=== PATIENT | male | born 1960 | race Caucasian/White ===

== ENCOUNTER 2017-06-12 07:02 | Day surgery (SDC) | payer BC, OTHER ==
[2017-06-11 10:50] VITALS: BMI 41.8
[~2017-06-12 07:02] MED LIST: LACTATED RINGERS 1,000 ML IV SCH
[2017-06-12 08:51] VITALS: TEMP 98.8
[2017-06-12] MEDS ORDERED: LACTATED RINGERS 1,000 ML IV ONE (08:52)
[2017-06-12 09:13] LABS: Glucose,Whole Blood 114 mg/dL (75-99)
[2017-06-12] MEDS ORDERED: MIDAZOLAM 2 MG/2 ML VIAL ONE (09:28)
[2017-06-12] MEDS ORDERED: PROPOFOL 10 MG/ML 20 ML VIAL IV ONE (09:28)
[2017-06-12] MEDS ORDERED: fentaNYL (PF) 50 MCG/ML 2 ML AMP ONE (09:28)
--- NOTE | 2017-06-12 09:33 | P.GSHP ---
History of Present Illness H&P Date: 06/12/17 Chief Complaint: Colon cancer screening Patient here today for colonoscopy. He has not had one previously. No bowel related complaints. No family history of colon cancer. Past Medical History Past Medical History: Diabetes Mellitus, Hyperlipidemia, Hypertension, Osteoarthritis (OA) Additional Past Medical History / Comment(s): "borderline diabetic-dr supposed to call in prescription", tendon injury to rt arm-limits movement of arm History of Any Multi-Drug Resistant Organisms: None Reported Past Surgical History: Joint Replacement Additional Past Surgical History / Comment(s): ray hip replacements, metal removed from rt eye, Past Anesthesia/Blood Transfusion Reactions: No Reported Reaction Smoking Status: Current every day smoker - Past Family History Father Family Medical History: Cancer Medications and Allergies Home Medications Medication Instructions Recorded Confirmed Type Aspirin [Adult Low Dose Aspirin EC] 81 mg PO DAILY 06/11/17 06/12/17 History Bisoprolol-Hctz 10-6.25 mg [Ziac 1 each PO DAILY 06/11/17 06/12/17 History 10-6.25] Escitalopram Oxalate [Lexapro] 10 mg PO DAILY 06/11/17 06/12/17 History Hydrocodone/Acetaminophen [[place] 1 tab PO Q6H PRN 06/11/17 06/11/17 History 10-325] Ibuprofen [Motrin] 800 mg PO DAILY PRN 06/11/17 06/12/17 History Multivitamins, Thera [Multivitamin 1 tab PO DAILY 06/11/17 06/12/17 History (formulary)] Allergies Allergy/AdvReac Type Severity Reaction Status Date / Time No Known Allergies Allergy Verified 06/12/17 08:53 Surgical - Exam Vital Signs Temp Pulse Resp BP Pulse Ox 98.8 F 82 20 125/79 92 L 06/12/17 08:49 06/12/17 08:49 06/12/17 08:49 06/12/17 08:49 06/12/17 08:49 Physical exam: General: Well-developed, well-nourished HEENT: Normocephalic, sclerae nonicteric Abdomen: Nontender, nondistended Extremities: No edema Neuro: Alert and oriented Results - Labs Abnormal Lab Results - Last 24 Hours (Table) 06/12/17 Range/Units 09:10 POC Glucose (mg/dL) 114 H (75-99) mg/dL Assessment and Plan (1) Colon cancer screening Narrative/Plan: Will proceed with colonoscopy at this time. Current Visit: Yes Status: Acute Code(s): Z12.11 - ENCOUNTER FOR SCREENING FOR MALIGNANT NEOPLASM OF COLON SNOMED Code(s): 450329495
--- NOTE | 2017-06-12 09:45 | P.PCN ---
Date of Procedure: 06/12/17 Procedure(s) Performed: PREOPERATIVE DIAGNOSIS: Colon cancer screening POSTOPERATIVE DIAGNOSIS: Small internal and external hemorrhoids PROCEDURE: Colonoscopy ANESTHESIA: MAC SURGEON: Ángel Lagos M.D. SPECIMENS: None ENDOSCOPIC PROCEDURE: The patient was placed on the endoscopy table in the left decubitus position. The Olympus colonoscope was inserted into the anus and passed under direct visualization to the base of the cecum. The appendiceal orifice was visualized. From that point the scope was slowly withdrawn inspecting all surfaces carefully. There were no neoplastic inflammatory or polypoid lesions throughout the cecum, ascending, transverse, descending, sigmoid and rectum. The prep on the right side of the colon was slightly suboptimal. There was no diverticulosis noted. Digital rectal examination was normal. The patient was taken to the recovery room in stable condition per anesthesia guidelines. RECOMMENDATIONS: Increase fiber. Follow-up colonoscopy 10 years.
[2017-06-12 09:48] VITALS: RESP 16
[2017-06-12 09:57] VITALS: BP 121/81; PULSE 79
== END 2017-06-12 10:05 | disposition home or self-care (01) ==
LOC: ORWHC2ENDO 07:02
PROVIDERS: ATTEND Surgery
DX: Z12.11 Encounter for screening for malignant neoplasm of colon (principal); K64.8 Other hemorrhoids; K64.4 Residual hemorrhoidal skin tags; R73.03 Prediabetes; E78.5 Hyperlipidemia, unspecified; I10 Essential (primary) hypertension; M19.90 Unspecified osteoarthritis, unspecified site; F17.210 Nicotine dependence, cigarettes, uncomplicated; Z79.82 Long term (current) use of aspirin; Z79.899 Other long term (current) drug therapy
CPT/HCPCS: J2250; J3010; J2704; G0121

== ENCOUNTER → 2017-11-13 | Outpatient (CLI) | payer OTHER ==
--- NOTE | 2017-11-13 12:56 | XR ---
EXAMINATION TYPE: XR lumbosacral spine min 4V DATE OF EXAM: 11/13/2017 COMPARISON: None HISTORY: Low back pain TECHNIQUE: Five-view lumbar spine FINDINGS: There is a scoliosis present with convexity to the right. There 5 lumbar-type vertebral bod ies. The pedicles are intact. Facet changes as visualized appear normal. The left posterior oblique v iew is limited. There is loss of disc height L5-S1. Some vacuum disc phenomenon may be present. There is narrowing of the posterior L4-5 and L3-4 disc heights. Vertebral body heights are preserved. IMPRESSION: 1. Degenerative disc changes. 2. Mild scoliosis.
== END | disposition home or self-care (01) ==
LOC: RADXRMAIN 11:42
PROVIDERS: ATTEND Family Medicine
DX: M51.36 Other intervertebral disc degeneration, lumbar region (principal); M41.86 Other forms of scoliosis, lumbar region
CPT/HCPCS: 72110

== ENCOUNTER → 2017-12-01 | Outpatient (CLI) | payer OTHER ==
--- NOTE | 2017-12-01 17:32 | XR ---
EXAMINATION TYPE: XR chest 2V DATE OF EXAM: 12/01/2017 COMPARISON: Prior chest 07/11/2009 HISTORY: Shortness of breath TECHNIQUE: Frontal and lateral views of the chest are obtained. FINDINGS: There is no focal air space opacity, pleural effusion, or pneumothorax seen. The cardiac silhouette size is within normal limits. The osseous structures are intact. Arthropathy noted in th e shoulders. Prominent lung volume could be indicative of underlying COPD. Patient is rotated. IMPRESSION: No acute cardiopulmonary process.
== END | disposition home or self-care (01) ==
LOC: CPPFTMAIN 13:42
PROVIDERS: ATTEND Family Medicine
DX: J45.909 Unspecified asthma, uncomplicated (principal); R06.02 Shortness of breath
CPT/HCPCS: 71046; 94060; 94726; 94729